=== PATIENT | female | born 1965 | race African-American/Black ===

== ENCOUNTER 2020-09-04 06:56 | Emergency (ER) | payer MEDICAID ==
[~2020-09-04] VITALS: Ht 167.6 cm; Wt 80.0 kg
[2020-09-04 07:34] VITALS: BP 197/115
[2020-09-04] MEDS ORDERED: LOSARTAN POTASSIUM 25 MG TABLET PO ONE (08:45)
[2020-09-04] MEDS ORDERED: HYDROCHLOROTHIAZIDE 25MG TABLET PO ONE (08:45)
== END 2020-09-04 08:51 | disposition home or self-care (01) ==
LOC: ER 06:56
DX: I10 Essential (primary) hypertension (principal); Z76.0 Encounter for issue of repeat prescription; Z88.0 Allergy status to penicillin; Z91.19 Patient's noncompliance with other medical treatment and regimen
CPT/HCPCS: 99283